=== PATIENT | male | born 1995 | race Caucasian/White ===

== ENCOUNTER 2019-04-20 07:41 | Emergency (ER) | payer OTHER ==
[2019-04-20] MEDS ORDERED: Adacel (T-DAP) 0.5 ML SYRINGE ONE (08:50)
[2019-04-20] MEDS ORDERED: ceFAZolin 1 GM/D5W 1 GM in Premix Bag 1 BAG IVPB SCH (09:45)
--- NOTE | 2019-04-20 10:30 | RAD ---
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 FINDINGS: Air is seen within the soft tissues. No underlying fracture identified. No radiopaque foreign bodies. IMPRESSION: Air seen within the soft tissues of the thumb. POS: C
[2019-04-20] MEDS ORDERED: Ketorolac Tromethamine 30 MG/ML VIAL ONE (11:11)
[2019-04-20] MEDS ORDERED: Bacitracin 1 PK ONE (12:30)
== END 2019-04-20 12:44 | disposition home or self-care (01) ==
LOC: ERS 07:41
DX: S61.012A Laceration without foreign body of left thumb without damage to nail, initial encounter (principal); S69.82XA Other specified injuries of left wrist, hand and finger(s), initial encounter; Z87.891 Personal history of nicotine dependence
CPT/HCPCS: 90715; J0690; J1885

== ENCOUNTER 2019-04-22 15:00 | Inpatient (IN) | payer OTHER ==
[2019-04-22] MEDS ORDERED: Thrombin 5000 UNITS/5 ML VIAL ONE (16:58)
[2019-04-22] MEDS ORDERED: Bupivacaine PF 0.5% 30 ML VIAL ONE (16:58)
[2019-04-22] MEDS ORDERED: Bacitracin Zinc Ointment 30 gm TUBE ONE (16:58)
[2019-04-22] MEDS ORDERED: Sodium Chloride 0.9% 50 ML ONE (16:58)
[2019-04-22] MEDS ORDERED: Fentanyl 100 MCG/2 ML VIAL ONE (17:01)
[2019-04-22] MEDS ORDERED: Midazolam HCl 2 mg/2 ml Vial ONE (17:20)
[2019-04-22] MEDS ORDERED: Promethazine HCl 25 MG/ML VIAL IM PRN ×2 (17:44→19:12)
[2019-04-22] MEDS ORDERED: traMADol HCl 50 MG TAB PO PRN (17:44)
[2019-04-22] MEDS ORDERED: Morphine 4 MG/ML VIAL SLOW IVP PRN (17:44)
[2019-04-22] MEDS ORDERED: Ondansetron PF 4 MG/2 ML Vial IV PRN (17:44)
[2019-04-22] MEDS ORDERED: Fentanyl 100 MCG/2 ML VIAL SLOW IVP PRN (17:44)
[2019-04-22] MEDS ORDERED: Acetaminophen 325 MG TAB PO PRN (17:44)
[2019-04-22] MEDS ORDERED: Communication Order-Pharmacy FS SCH (17:45)
[2019-04-22] MEDS ORDERED: Meperidine HCl/PF 25 MG/ML VIAL IM PRN (17:51)
[2019-04-22] MEDS ORDERED: Ketorolac Tromethamine 30 MG/ML VIAL IVP PRN (17:51)
[2019-04-22] MEDS ORDERED: HYDROmorphone 2 MG/ML VIAL ONE (18:30)
[2019-04-22] MEDS ORDERED: HYDROmorphone 2 MG/ML VIAL SLOW IVP PRN (19:12)
[2019-04-22] MEDS ORDERED: Meperidine HCl/PF 25 MG/ML VIAL SLOW IVP PRN (19:12)
[2019-04-22] MEDS ORDERED: Promethazine HCl 25 MG/ML VIAL SLOW IVP PRN (19:12)
[2019-04-22] MEDS: Aspirin 81 mg Enteric Coated Tablet PO SCH (21:48)
[2019-04-22] MEDS: Sodium Chloride 0.9% 1,000 ML IV SCH (21:48)
[2019-04-22] MEDS: Ketorolac Tromethamine 30 MG/ML VIAL IVP SCH ×2 (21:49→23:42)
[2019-04-22 22:08] VITALS: BMI 28.5
[2019-04-23] MEDS: Vancomycin HCl 1.5 GM in Sodium Chloride 0.9% 250 ML 300 ML IVPB SCH ×2 (02:43→12:55)
[2019-04-23] MEDS: Ketorolac Tromethamine 30 MG/ML VIAL IVP SCH ×3 (06:02→17:43)
[2019-04-23] MEDS: Sodium Chloride 0.9% 1,000 ML IV SCH ×3 (06:02→23:13)
--- NOTE | 2019-04-23 08:50 | OP ---
DATE OF PROCEDURE: 04/22/2019 PREOPERATIVE DIAGNOSES: 1. High-pressure injection injury, flexor tendon sheath of the thumb, flexor pollicis longus of the thumb, distal and proximal phalanx level extending into the flexor sheath in the carpal canal, but not proximal to the carpal tunnel. 2. Debride, brown, rock-like, firm, crunchy debris into the sheath at least 1 cm proximal to the actual wound and in the neurovascular bed. 3. Gross abscess, flexor sheath. PROCEDURES PERFORMED: 1. Flexor tenosynovectomy, radical left thumb. 2. Flexor tenosynovectomy, radical carpal tunnel level, wrist. 3. Abscess incision and drainage, thumb, distal phalanx and middle phalanx. 4. Debridement of foreign body, thumb, middle phalanx proximal to the injection site. 5. Flexor sheath irrigation, carpal canal and thumb. TOURNIQUET TIME: 22 minutes. ESTIMATED BLOOD LOSS: 10 mL. INDICATIONS FOR PROCEDURE: High-pressure injection injury approximately 72 hours prior to procedure, slowly developed abscess over time. The patient reports he was wearing gloves and it was water as the source of the liquid. DESCRIPTION OF PROCEDURE: After successful general endotracheal anesthesia, the limb was limb prepped and draped. Tourniquet was inflated after the limb was exsanguinated to 250 mm hg pressure. A total of 30 mL of 0.5% Marcaine was given, 15 before the surgery and 15 after. We then extended his transverse laceration at the level of the IP joint flexion crease 1.5 cm distally and then 3 cm proximal. We dissected down, immediately there was gross purulence, so we cultured this. We then used sharp and blunt dissection combination to separate the neurovascular bundles and protect them. Then, we performed a radical flexor tenosynovectomy of the flexor pollicis longus at the thumb level. During this time, we saw gross brown, gritty, hard rock-like debris which we removed as much as we could visualize, finished our deep debridement with use of blunt dissecting forceps, and then once we had done all debridement of fat, the abscess cavity and visualized the nerves and artery bundles, we irrigated this area with 3 L of normal saline and Pulsavac pressure with antibiotics inside. We then followed the abscess to the level, flexor tenosynovectomy was performed radically from the level of the injection site which was distal to the IP joint flexion crease all the way to the level of A2 virgie. We then went proximal to A1 virgie and into the carpal canal, performed a formal carpal tunnel release, inspected the tendon sheath, we found the flexor pollicis longus tendon, which was radial to the median nerve. We found what appeared to be serosanguinous fluid, possible early infection, which was debrided and irrigated appropriately, showed dissipation of any contamination. We now placed the Pollack catheter into the carpal canal next to the flexor tendon sheath of the thumb, inside the sheath, we then irrigated the area and there was excellent outflow. The Pollack will remain indwelling and was sewn in and bulky dressing was applied with normal saline soaked gauze and 2 incisions and the patient left the operating room without evidence of anesthetic or operative complication. Job ID: [id number]
[2019-04-23] MEDS ORDERED: TETANUS AND DIPHTHERIA TOX/PF 0.5 ML DISP.SYRIN IM SCH (09:00)
[2019-04-23] MEDS: Aspirin 81 mg Enteric Coated Tablet PO SCH ×2 (09:23→20:11)
[2019-04-23] MEDS ORDERED: Sodium Chloride 0.9% 20 ML ONE (17:44)
[2019-04-24 01:22] LABS: Vancomycin, Trough 7.7 ug/mL
[2019-04-24] MEDS: Vancomycin HCl 1.5 GM in Sodium Chloride 0.9% 250 ML 300 ML IVPB SCH ×2 (01:36→09:03)
[2019-04-24] MEDS: HYDROcodone/Acetaminophen 5/325 mg Tablet PO PRN ×2 (01:41→09:49)
--- NOTE | 2019-04-24 06:13 | DIS ---
DATE OF ADMISSION: 04/22/2019 DATE OF DISCHARGE: 04/24/2019 ADMISSION DIAGNOSES: 1. Abscess, left thumb. 2. High-pressure hose injection injury. 3. Gram-negative tendon sheath abscess, left thumb into carpal canal. HOSPITAL COURSE: The patient is a 23-year-old male who was involved in high-pressure hose accident while helping a friend power wash his home. He reported he was wearing gloves, initially came to our emergency room, did not have evidence of infection. Two and a half days later, he noted swelling and gross purulence from an open wound over the base of the thumb, distal phalanx. He never had numbness or tingling. The patient was admitted, and was immediately found to have fluctuance, Kanavel signs, and draining mucopurulent from a 2-cm transverse laceration with necrotic edges at the thumb base, distal interphalangeal joint. He underwent incision and drainage of the wound by extending it and found it involved the flexor sheath where he also had debris, brown small rocks removed, he had necrosis of the skin and early flexor tendon sheath. He had trace of the infection down to the flexor pollicis longus within the carpal canal, but did not reach the proximal end of the carpal canal, but it required a carpal tunnel release and tenosynovectomy of the carpal canal along with sheath irrigation and incision and drainage and debridement of the wound as well. He was then treated with 36 hours of IV antibiotics, underwent dressing changes x2 and with his last dressing using a controlling gauze for more longer duration of wound care. He had motion without evidence of any Kanavel signs. Erythema was gone and there was no lymphangitis and minimal edema. DISCHARGE DIAGNOSES: 1. Abscess, left thumb. 2. High-pressure hose injection injury. 3. Gram-negative tendon sheath abscess, left thumb into carpal canal. DISCHARGE PLAN: The patient will be discharged with tramadol 50 mg for pain, Toradol 10 mg one p.o. t.i.d. for 5 days for pain, inflammation, and swelling. Antibiotic [place], since he grew gram-negative rods preliminarily, he will be treated with clindamycin 150 mg t.i.d. and ciprofloxacin 500 mg one tablet twice a day. He will return for dressing change in 72-84 hours in clinic with Dr. Garcia. Job ID: [id number]
[2019-04-24] MEDS: Aspirin 81 mg Enteric Coated Tablet PO SCH (09:03)
[2019-04-24 11:40] VITALS: BP 161/91; TEMP 98.2
== END 2019-04-24 13:00 | disposition home or self-care (01) | DRG 502 ==
LOC: ERS 15:00 → SURG A 19:44
PROVIDERS: ADMIT Orthopaedic Surgery Hand Surgery; ATTEND Orthopaedic Surgery Hand Surgery
PROC: 0KCD0ZZ Extirpation of Matter from Left Hand Muscle, Open Approach (ICD-10-PCS; principal; 2019-04-22)
PROC: 0LB60ZZ Excision of Left Lower Arm and Wrist Tendon, Open Approach (ICD-10-PCS; 2019-04-22)
DX: M65.042 Abscess of tendon sheath, left hand (principal); T70.4XXA Effects of high-pressure fluids, initial encounter; X58.XXXA Exposure to other specified factors, initial encounter; B96.89 Other specified bacterial agents as the cause of diseases classified elsewhere; Z88.0 Allergy status to penicillin; Z88.2 Allergy status to sulfonamides; Z88.8 Allergy status to other drugs, medicaments and biological substances; Y08.89XA Assault by other specified means, initial encounter; Y92.009 Unspecified place in unspecified non-institutional (private) residence as the place of occurrence of the external cause
CPT/HCPCS: 36415; 80202; 87070; 87077; 87186; 87205; 90471; 90715; 96365; 96375; C1758; J0690; J1170; J1885; J1956; J2250; J3010; J3370; J3490; J7050; S0020

== ENCOUNTER → 2019-05-02 | Day surgery (SDC) | payer OTHER ==
[2019-05-01 15:33] VITALS: BMI 27.1
== END ==
LOC: SDC 13:54
PROVIDERS: ATTEND Orthopaedic Surgery Hand Surgery
DX: S61.012A Laceration without foreign body of left thumb without damage to nail, initial encounter (principal); Z53.9 Procedure and treatment not carried out, unspecified reason; Z88.0 Allergy status to penicillin; Z88.2 Allergy status to sulfonamides; Z79.2 Long term (current) use of antibiotics; X58.XXXA Exposure to other specified factors, initial encounter